=== PATIENT | female | born 1995 | race Caucasian/White ===

== ENCOUNTER 2018-07-21 08:00 | Inpatient (IN) ==
[2018-07-21] MEDS ORDERED: Ondansetron 4 MG/2 ML VIAL IVP PRN (09:09)
[2018-07-21] MEDS ORDERED: *HR* Nalbuphine 10 MG/ML AMPUL IVP PRN (09:09)
[2018-07-21] MEDS ORDERED: Metoclopramide 10 MG/2 ML VIAL IVP PRN (09:09)
[2018-07-21] MEDS ORDERED: Famotidine 20 MG/2 ML VIAL IVP PRN (09:09)
[2018-07-21] MEDS ORDERED: Naloxone 0.4 MG/ML INJ IVP PRN (09:09)
[2018-07-21 09:31] LABS: Basophils % 0.2 %; Eosinophils # 0.1 K/mcL (0.0-0.6); Eosinophils % 0.9 %; Hematocrit 37.3 % (35.3-44.9); Hemoglobin 12.9 g/dL (11.5-15.4); Immature Granulocytes % 0.6 % (0-4); Immature Platelets 4.6 % (1.1-6.1); Lymphocytes # 2.8 K/mcL (0.6-4.6); Lymphocytes % 21.6 %; Mean Corpuscular HGB Conc 34.6 g/dL (31.6-35.5); Mean Corpuscular Hemoglobin 29.1 pg (28.0-33.3); Mean Corpuscular Volume 84.2 fL (83.0-100.0); Mean Platelet Volume 10.3 fL (9.4-12.4); Monocytes # 0.8 K/mcL (0.0-1.3); Monocytes % 6.4 %; Neutrophils # 8.9 K/mcL (1.6-8.9); Platelet Count 242 K/mcL (140-400); Red Blood Count 4.43 M/mcL (3.82-4.97); Red Cell Distribution Width 12.7 % (11.5-14.5); Segmented Neutrophils % 70.3 %
[2018-07-21 10:03] LABS: Amphetamine Screen,Urine Negative ng/mL (Cutoff=1000); Barbiturate Screen,Urine Negative ng/mL (Cutoff=200); Benzodiazepines Screen,Urine Negative ng/mL (Cutoff=200); Cannabinoid Screen,Urine Negative ng/mL (Cutoff = 50); Cocaine Screen,Urine Negative ng/mL (Cutoff= 300); Opiate Screen,Urine Negative ng/mL (Cutoff=300); Phencyclidine Screen,Urine Negative ng/mL (Cutoff=25)
[2018-07-21] MEDS: Ringers Solution, Lactated 1,000 ML IVC SCH ×2 (10:57→12:06)
--- NOTE | 2018-07-21 11:09 | OB Labor Progress Note ---
Date of Encounter: 07/21/18 Time of Encounter: 11:07 Labor Progress Note - Subjective Subjective: Pt doing well, c/o cramping. - Vital Signs Vital Signs: AF,VSS - Cervix Cervix: 4/80-90/-2 - Heart Tones Heart Tones: RNST - Sundance Sundance: uc's q 60 sec. - Interventions Interventions: AROM clear - Plan Plan: Expect .
[2018-07-21] MEDS ORDERED: Oxytocin 20 units/ LR 1000 mL 20 UNIT/1,000 ML BAG IVC ONE (12:54)
--- NOTE | 2018-07-21 13:46 | OB/GYN Procedure Note ---
Delivery - Delivery Date: 07/21/18 Provider: Mohinder Pena Delivery induction: AROM Delivery monitor: external FHT, external uterine Anesthesia: local Quantitated Blood Loss: 250 - (s) Infant A Delivery Date: 07/21/18 Infant Delivery Time: 13:20 Presentation: vertex Position: DYLON Route of delivery: Gender: Male Viability: Viable Weight Gram: 3740 kg at 1 minute: 7 at 5 mins: 9 Shoulder Dystocia: encountered Shoulder Dystocia Maneuvers: Jesus maneuver, suprapubic pressure Specimens collected: cord blood Placenta: spontaneous Cord: nuchal cord (x2), 3 umbilical vessels - Repair Episiotomy: none Laceration Description: Perineal - 3rd Degree (Partial (1/3 into muscle)) - Complications Delivery complications: none - Disposition Mom disposition: stable in LDR [place] disposition: stable in LDR - Comments Comments: Patient status post normal spontaneous vaginal delivery of a liveborn male infant weighing 3740 g. Patient did not have an epidural she did have terminal bradycardia for approximately 66 minutes to a heart rate of 60 bpm. This did recover to the 130s for approximately 2 minutes immediately prior to delivery. Was given maternal effort infant did deliver from left occiput anterior presentation using ritgens maneuver to expedite delivery. After delivery of the head there was nuchal cord 2 which was reduced. We did have a 15 second shoulder dystocia which responded to Jesus position as well as suprapubic pressure. Infant was delivered without incident cord was clamped cut and infant was taken to the warmer Apgars were found to be 7 at 1 minute and 9 at 5 minutes weight 3000 740 g. We did a spontaneous delivery of normal placenta with three-vessel cord. This partial third-degree laceration approximate 30 the muscle being torn. This was repaired under local anesthesia with 2 and 3-0 Vicryl in the usual manner.
[2018-07-21] MEDS ORDERED: Ibuprofen 600 MG TABLET PO ONE (14:01)
--- NOTE | 2018-07-21 14:01 | OB/GYN History & Physical ---
Date of Encounter: 07/21/18 Time of Encounter: 13:57 Assessment and Plan (1) 39 weeks gestation of Current visit: No Status: Acute Pt presents for induction of labor. Her cervix is favorable and she is jahaira, will perform amniotomy and expect . History of Present Illness Chief complaint: Here for induction, irregular contractions, 39 weeks gestation HPI: Ms. Eugene is a 22 year old female 2 para 1 female at 39w5d gestation presents for induction of labor. Principal uncomplicated. She does have a history of precipitous delivery and her cervix is 4 cm dilated. On arrival she reports irregular contractions every 15-20 minutes she denies bleeding or leakage of fluid. Past Med Surg Social Fam HX - Past Medical History Source: patient, old records reviewed Medical history: non-contributory Additional medical history: heart murmur Psychiatric history: no psych history - Past Surgical History Surgical History: other Additional surgical history: T&A as a child - Social History Smoking Status: Never smoker Smokeless Tobacco Status: No Alcohol use: none Drug use: none - Family History Mother History Unknown: Yes Age: 46 Living Status: Still Living Hx Family Cardiac Disorders: Yes (htn) Hx Family Respiratory Disorders: No Hx Family Cancer: No Hx Family GI Disorders: No Hx Family Genitourinary Disorders: No Hx Family Endocrine Disorder: No Hx Family Musculoskeletal Disorders: No Hx Family Neuromuscular Disorders: No Hx Family Neurologic Disorders: No Hx Family HEENT Disorders: No Hx Family Autoimmune Disorders: No Hx Family Reproductive Disorders: No Hx Family Psychosocial Disorders: No Hx Family Medical Disorders: No Obstetrical History - Pregnancies : 2 Medications and Allergies Claritin 1 tab PO DAILY PRN 04/13/18 [History] Diclegis Dr 10-10 mg Tablet 1 tab PO PRN PRN 04/13/18 [History] 3 Allergy/AdvReac Type Severity Reaction Status Date / Time No Known Allergies Allergy Verified 04/13/18 20:27 Exam - Constitutional Constitutional: well developed - HEENT HEENT: EOMI, PERRL - Neck Neck exam: full ROM - Lungs Respiratory exam: CTAB - Cardiovascular Cardiovascular exam: RRR - Abdomen Abdomen: Present: gravid - Extremities Extremities exam: full ROM Deep Tendon Reflex Grade: 2+ Normal - Vagina Vagina: Present: normal moisture - Cervix Dilation: 4 Effacement: 80 Station: -2 - Uterus Uterus exam: Present: enlarged Results Result Diagrams: 07/21/18 09:00 Abnormal lab results WBC 12.7 K/mcL (4.3-11.1) H 07/21/18 09:00 All other labs normal. - VTE Reasons for not Prescribing Prophylaxis: Treatment not Indicated - Low risk for VTE
[2018-07-21] MEDS ORDERED: Rho Immune Globulin 1,500 UNIT SYRINGE IM PRN (16:01)
[2018-07-21] MEDS ORDERED: Acetaminophen 325 MG TABLET PO PRN (16:01)
[2018-07-21] MEDS ORDERED: Measles/Mumps/Rubella Vacc 0.5 ML VIAL SQ PRN (16:01)
[2018-07-21] MEDS ORDERED: Oxytocin 20 units/ LR 1000 mL 20 UNIT/1,000 ML BAG IVC SCH (16:01)
[2018-07-22 07:05] LABS: Basophils % 0.2 %; Eosinophils % 0.2 %; Hematocrit 34.8 % (35.3-44.9); Hemoglobin 11.6 g/dL (11.5-15.4); Immature Granulocytes % 0.5 % (0-4); Lymphocytes # 2.9 K/mcL (0.6-4.6); Lymphocytes % 16.8 %; Mean Corpuscular HGB Conc 33.3 g/dL (31.6-35.5); Mean Corpuscular Hemoglobin 28.3 pg (28.0-33.3); Mean Corpuscular Volume 84.9 fL (83.0-100.0); Mean Platelet Volume 10.4 fL (9.4-12.4); Monocytes % 5.6 %; Neutrophils # 13.3 K/mcL (1.6-8.9); Platelet Count 214 K/mcL (140-400); Segmented Neutrophils % 76.7 %
[2018-07-22 08:08] VITALS: BP 123/79
--- NOTE | 2018-07-22 08:52 | Discharge Summary ---
Date of Encounter: 07/22/18 Time of Encounter: 08:50 - Discharge Diagnosis (1) Vaginal delivery Priority: Primary Status: Acute Comments: Stable in PP, pain well managed on po pain medication, tolerates diet, , desires discharge. - Discharge Medications Prescriptions: Ibuprofen [Motrin] 600 mg PO Q6HR PRN #60 tab PRN Reason: Pain Docusate [Colace] 100 mg PO BID #30 capsule Home Medications: Claritin 1 tab PO DAILY PRN 04/13/18 [History] Acetaminophen [Tylenol] 650 mg PO Q6HR PRN tablet 07/22/18 [Rx] Docusate [Colace] 100 mg PO BID #30 capsule 07/22/18 [Rx] Ibuprofen [Motrin] 600 mg PO Q6HR PRN #60 tab 07/22/18 [Rx] Vit/FA 1 each PO DAILY tablet 07/22/18 [Rx] Allergies/Adverse Reactions: 3 Allergy/AdvReac Type Severity Reaction Status Date / Time No Known Allergies Allergy Verified 04/13/18 20:27 Data Procedures and tests throughout hospitalization: Laboratory Tests 07/21/18 07/21/18 07/22/18 09:00 09:00 06:45 WBC 12.7 H 17.3 H RBC 4.43 4.10 Hgb 12.9 11.6 Hct 37.3 34.8 L MCV 84.2 84.9 MCH 29.1 28.3 MCHC 34.6 33.3 RDW 12.7 13.0 Plt Count 242 214 MPV 10.3 10.4 Immature Gran % 0.6 0.5 Seg Neutrophils % 70.3 76.7 Lymphocytes % 21.6 16.8 Monocytes % 6.4 5.6 Eosinophils % 0.9 0.2 Basophils % 0.2 0.2 Neutrophils # 8.9 13.3 H Lymphocytes # 2.8 2.9 Monocytes # 0.8 1.0 Eosinophils # 0.1 0.0 Basophils # 0.0 0.0 Immature Plt Fraction 4.6 Urine Opiates Screen Negative Ur Barbiturates Screen Negative Ur Phencyclidine Scrn Negative Ur Amphetamines Screen Negative U Benzodiazepines Scrn Negative Urine Cocaine Screen Negative U Marijuana (THC) Screen Negative Ur Drug Screen Interp See Below Labs on day of discharge: Labs from last 24 hours 07/22/18 07/21/18 07/21/18 06:45 09:00 09:00 WBC 17.3 H 12.7 H RBC 4.10 4.43 Hgb 11.6 12.9 Hct 34.8 L 37.3 MCV 84.9 84.2 MCH 28.3 29.1 MCHC 33.3 34.6 RDW 13.0 12.7 Plt Count 214 242 MPV 10.4 10.3 Immature Gran % 0.5 0.6 Seg Neutrophils % 76.7 70.3 Lymphocytes % 16.8 21.6 Monocytes % 5.6 6.4 Eosinophils % 0.2 0.9 Basophils % 0.2 0.2 Neutrophils # 13.3 H 8.9 Lymphocytes # 2.9 2.8 Monocytes # 1.0 0.8 Eosinophils # 0.0 0.1 Basophils # 0.0 0.0 Immature Plt Fraction 4.6 Urine Opiates Screen Negative Ur Barbiturates Screen Negative Ur Phencyclidine Scrn Negative Ur Amphetamines Screen Negative U Benzodiazepines Scrn Negative Urine Cocaine Screen Negative U Marijuana (THC) Screen Negative Ur Drug Screen Interp See Below Date of admission: 07/21/18 08:15 Primary care physician: Ayo Kohler MD Consults: 07/21/18 16:01 Consult to [employer] [CONS] Routine Comment: Vaginal delivery, consult needed Discharging clinician: Beth Siddiqi Anticipated date of discharge: 07/22/18 - Patient Status Disposition: Home, Self-Care Condition: Good Functional capacity at discharge: independent ambulation Overall status at discharge: patient is back to baseline - Discharge Instructions Follow Up With: Ayo Kohler MD [Primary Care Provider] - Mohinder Pena MD [Partnered Physician] - - Diet and Activity Activity: resume usual activities as tolerated Diet: regular diet Hospital Course Reason for admission: IUP at term Delivery: Episiotomy: none Laceration: 3rd degree Other procedures: none complications: none Discharge diagnosis: IUP at term delivered baby: male Hospital course: Delivery - Delivery Date: 07/21/18 Provider: Mohinder Pena Delivery induction: AROM Delivery monitor: external FHT, external uterine Anesthesia: local Quantitated Blood Loss: 250 - (s) Infant A Infant Delivery Date: 07/21/18 Delivery Time: 13:20 Presentation: vertex Position: DYLON Route of delivery: Gender: Male Viability: Viable Weight Gram: 3740 kg at 1 minute: 7 at 5 mins: 9 Shoulder Dystocia: encountered Shoulder Dystocia Maneuvers: Jesus maneuver, suprapubic pressure Specimens collected: cord blood Placenta: spontaneous Cord: nuchal cord (x2), 3 umbilical vessels - Repair Episiotomy: none Laceration Description: Perineal - 3rd Degree (Partial (1/3 into muscle)) - Complications Delivery complications: none - Disposition Mom disposition: stable inPP and appropriate for discharge Time Attestation: Total time spent providing and/or coordinating discharge services: Time Spent: Less than 30 minutes Exam - Constitutional Vitals: Temp Pulse Resp BP Pulse Ox 98.0 F 74 18 123/79 97 07/22/18 08:07 07/22/18 08:07 07/22/18 08:07 07/22/18 08:07 07/22/18 08:07 General appearance IM: A&O X 3 - Respiratory Respiratory exam: Present: CTAB - Cardiovascular Cardiovascular exam IM: Present: RRR - GI/Abdominal GI/Abdominal exam IM: soft - Uterine Tone: Firm Uterus Position: At Umbilicus - Extremities Exam Extremities exam IM: Present: normal capillary refill, normal inspection - Neurological Exam Neurological exam: normal gait, oriented X3 - Psychiatric Additional comments: reports good mood
[2018-07-22] MEDS ORDERED: Prenatal Vit/FA 1 EACH TABLET PO SCH (09:00)
== END 2018-07-22 14:30 | disposition home or self-care (01) | DRG 775 ==
LOC: 1NENULAB 08:15 → 1NENUOBS 16:04
PROVIDERS: ADMIT Obstetrics & Gynecology; ATTEND Obstetrics & Gynecology